=== PATIENT | female | born 1980 | race Caucasian/White ===

== ENCOUNTER → 2017-06-12 | Outpatient (CLI) | payer BC | LOC: COL.RAD 07:58 | DX: Z31.41 Encounter for fertility testing (principal) | CPT/HCPCS: Q9967 ==

== ENCOUNTER 2019-05-29 22:26 | Emergency (ER) | payer BC ==
[~2019-05-29] VITALS: Ht 157.5 cm; Wt 105.0 kg
[~2019-05-29 22:26] MED LIST: BIRTH CONTROL; PREDNISONE20 MG PO; SYNTHROID0.075 MG/T PO
[2019-05-29 22:35] VITALS: TEMP 98.4
[2019-05-29 23:05] LABS: BASO # 0.1 (0.0-0.2); BASO % 0.8 % (0.0-2.0); EOS # 0.2 (0.0-0.7); EOS % 1.7 % (0-4.0); GRAN # 7.6 (1.4-6.5); GRAN % 66.6 % (42.2-75.2); HEMATOCRIT 40.3 % (37.0-47.0); HEMOGLOBIN 13.3 g/dl (12.5-16.0); LYMPH # 2.5 (1.2-3.4); LYMPH % 21.6 % (20.0-51.0); MEAN CELL VOLUME 85 fl (80.0-100.0); MEAN CORPUSCULAR HEMOGLOBIN 28 pg (27.0-31.0); MEAN CORPUSCULAR HGB CONC 33 g/dl (33.0-37.0); MEAN PLATELET VOLUME 9.9 fl (7.4-10.4); MONO % 8.9 % (1.7-9.3); PLATELET COUNT 299 K/mm3 (130-400); RED BLOOD COUNT 4.76 M/mm3 (4.10-5.30); REDCELL DISTRIBUTION WIDTH-CV 13.4 % (11.5-14.5)
[2019-05-30 02:12] VITALS: BP 122/65; PULSE 70
== END 2019-05-30 02:12 | disposition home or self-care (01) ==
LOC: COL.ER 22:26
PROVIDERS: Physician Assistant
DX: O20.0 Threatened abortion (principal); O99.281 Endocrine, nutritional and metabolic diseases complicating pregnancy, first trimester; O16.1 Unspecified maternal hypertension, first trimester; E03.9 Hypothyroidism, unspecified; Z3A.11 11 weeks gestation of pregnancy; Z79.52 Long term (current) use of systemic steroids
CPT/HCPCS: J7030

== ENCOUNTER → 2019-10-16 | Outpatient (CLI) | payer BC | LOC: DIA.ED 08:36 | DX: O24.419 Gestational diabetes mellitus in pregnancy, unspecified control (principal); I10 Essential (primary) hypertension; E03.9 Hypothyroidism, unspecified | CPT/HCPCS: G0108 ==

== ENCOUNTER → 2019-11-26 | Outpatient (CLI) | payer BC ==
[~2019-11-26] MED LIST changes: +IBU800 M1 PO; +INDERAL LA 60MG60 MG PO; +PERCOCET 325 MG1 TA2 PO; +PRENATAL TABLET PO; +SYNTHROID0.112 MG/T PO
== END | disposition still patient (30) ==
LOC: ZCOL.LAB 00:10
DX: Z20.828 Contact with and (suspected) exposure to other viral communicable diseases (principal)

== ENCOUNTER 2019-11-27 10:15 | Inpatient (IN) | payer BC ==
[2019-11-27] VITALS (17 sets, daily range): BP systolic 77–137; BP diastolic 45–83; PULSE 58–73; TEMP 98–98.3
[~2019-11-27] VITALS: Ht 160.1 cm; Wt 116.8 kg
[~2019-11-27 10:15] MED LIST changes: -IBU800 M1 PO; -INDERAL LA 60MG60 MG PO; -PERCOCET 325 MG1 TA2 PO; -PRENATAL TABLET PO; -SYNTHROID0.112 MG/T PO
--- NOTE | 2019-11-27 10:20 | NUR ---
1020- Pt arrives on unit ambulatory for scheduled primary section. Pt and oriented to room. 1028- Pt into bed. EFM and TOCO on. Assessment completed. IV start, labs obtained.
[2019-11-27] MEDS ORDERED: SYNTHROID0.112 MG/T PO (10:36)
[2019-11-27] MEDS ORDERED: PRENATAL TABLET PO (10:37)
[2019-11-27] MEDS ORDERED: INDERAL LA 60MG60 MG PO (11:27)
[2019-11-27 11:28] LABS: BASO # 0.1 (0.0-0.2); BASO % 0.5 % (0.0-2.0); EOS # 0.1 (0.0-0.7); EOS % 1.1 % (0-4.0); GRAN # 8.2 (1.4-6.5); GRAN % 72.7 % (42.2-75.2); HEMATOCRIT 38.2 % (37.0-47.0); HEMOGLOBIN 12.9 g/dl (12.5-16.0); LYMPH % 17.9 % (20.0-51.0); MEAN CELL VOLUME 87 fl (80.0-100.0); MEAN CORPUSCULAR HEMOGLOBIN 29 pg (27.0-31.0); MEAN CORPUSCULAR HGB CONC 34 g/dl (33.0-37.0); MEAN PLATELET VOLUME 11.2 fl (7.4-10.4); MONO # 0.8 (0.1-0.6); MONO % 6.9 % (1.7-9.3); PLATELET COUNT 229 K/mm3 (130-400); RED BLOOD COUNT 4.41 M/mm3 (4.10-5.30); REDCELL DISTRIBUTION WIDTH-CV 13.9 % (11.5-14.5)
[2019-11-28 03:00] VITALS: BP 141/87; PULSE 61; TEMP 98
[2019-11-28 07:23] VITALS: BP 106/67; PULSE 70; TEMP 97.6
[2019-11-28] MEDS ORDERED: IBU800 M1 PO (07:34)
[2019-11-28] MEDS ORDERED: PERCOCET 325 MG1 TA2 PO (07:34)
[2019-11-28 11:35] VITALS: BP 109/69; PULSE 64
[2019-11-28 17:01] VITALS: BP 124/77; PULSE 74; TEMP 98.1
[2019-11-28 21:30] VITALS: BP 136/74; PULSE 73; TEMP 99.1
[2019-11-29 08:30] VITALS: BP 145/89; PULSE 73; TEMP 98.2
[2019-11-29 16:18] VITALS: BP 139/86; PULSE 82; TEMP 98.1
[2019-11-29 20:00] VITALS: BP 133/82; PULSE 68; TEMP 97.8
[2019-11-30 07:30] VITALS: BP 132/76; PULSE 82; TEMP 98.1
== END 2019-11-30 13:50 | disposition home or self-care (01) | DRG 787 ==
LOC: OB 10:15
PROVIDERS: ADMIT Student in an Organized Health Care Education/Training Program
PROC: 10D00Z1 Extraction of Products of Conception, Low, Open Approach (ICD-10-PCS; principal; 2019-11-27)
DX: O32.1XX0 Maternal care for breech presentation, not applicable or unspecified (principal); O10.92 Unspecified pre-existing hypertension complicating childbirth; Z37.0 Single live birth; O99.284 Endocrine, nutritional and metabolic diseases complicating childbirth; E03.9 Hypothyroidism, unspecified; O99.214 Obesity complicating childbirth; E66.9 Obesity, unspecified; O99.824 Streptococcus B carrier state complicating childbirth; O99.62 Diseases of the digestive system complicating childbirth; K21.9 Gastro-esophageal reflux disease without esophagitis; O24.429 Gestational diabetes mellitus in childbirth, unspecified control; O99.285 Endocrine, nutritional and metabolic diseases complicating the puerperium; E16.2 Hypoglycemia, unspecified; O34.13 Maternal care for benign tumor of corpus uteri, third trimester; D25.9 Leiomyoma of uterus, unspecified; Z3A.37 37 weeks gestation of pregnancy; Z88.2 Allergy status to sulfonamides
CPT/HCPCS: J0690; J1885; J2175; J2370; J2405; J2590; J3010; J7120